=== PATIENT | female | born 1965 | race Caucasian/White ===

== ENCOUNTER → 2022-04-01 | Outpatient (CLI) | payer BC ==
--- NOTE | 2022-04-02 08:59 | US ---
EXAMINATION TYPE: US thyroid st tissue head/neck DATE OF EXAM: 04/01/2022 COMPARISON: NONE CLINICAL HISTORY: E04.2 NONTOXIC MULTINODULAR GOITER. Hx FNA. Goiter. GLAND SIZE: Right Lobe: 6.3 x 2.3 x 2.1 cm Overall Parenchyma: heterogenous Left Lobe: 8.0 x 4.0 x 2.8 cm Overall Parenchyma: heterogeneous Isthmus Thickness: 0.6 cm NODULES RIGHT: # of nodules measured on right: 2 1. 0.7 X 0.7 x 0.5 cm, lower medial, solid or almost completely solid, isoechoic nodule, which is w ider than tall, with smooth margins, without echogenic foci. TR 3 Prior size: No prior LEFT: # of nodules measured on left: 2 1. 4.1 X 3.5 x 3.1 cm, mid-inf lat-mid, mixed cystic and solid, isoechoic nodule, which is wider th an tall, with smooth margins, without echogenic foci. TR 2 Prior size: No prior 2. 2.1 X 1.6 x 1.2 cm, medial, mixed cystic and solid, isoechoic nodule, which is wider than tall, with smooth margins, without echogenic foci. Prior size: No prior ISTHMUS: # of nodules measured in the isthmus: 1 1. 1.0 X 0.9 x 0.6 cm mixed cystic and solid, isoechoic nodule, which is wider than tall, with ill- defined margins, without echogenic foci. Prior size: No prior Bilateral neck scanned, no evidence of lymphadenopathy. IMPRESSION: 1. Mildly suspicious nodule within the right lobe thyroid. Consider follow-up exam in one year. 2017 ACR TI-RADS LEVEL: *Highest TI-RADS level nodule reported
== END | disposition home or self-care (01) ==
LOC: RADUSWWP 16:04
PROVIDERS: ATTEND Internal Medicine Endocrinology, Diabetes & Metabolism
DX: E04.2 Nontoxic multinodular goiter (principal)
CPT/HCPCS: 76536

== ENCOUNTER → 2022-04-03 | Outpatient (CLI) | payer BC ==
[2022-04-03 16:19] LABS: T4, Free (Free Thyroxine) 1.29 ng/dL (0.800-1.800)
== END | disposition home or self-care (01) ==
LOC: LABWHC1 11:43
PROVIDERS: ATTEND Internal Medicine Endocrinology, Diabetes & Metabolism
DX: E04.2 Nontoxic multinodular goiter (principal)
CPT/HCPCS: 36415; 84439; 84443

== ENCOUNTER → 2022-08-16 | Outpatient (CLI) | payer BC ==
[2022-08-16 18:57] LABS: African American GFR (CKD) 109.9 (60.0-200.0); Albumin 4.7 g/dL (3.8-4.9); Albumin/Globulin Ratio 1.96 (1.60-3.17); Anion Gap 9.1 mmol/L (10.00-18.00); BUN/Creat Ratio 24.57 Ratio (12.00-20.00); Blood Urea Nitrogen 17.2 mg/dL (9.0-27.0); Carbon Dioxide 27.9 mmol/L (20.0-27.5); Globulin 2.4 g/dL (1.6-3.3); Non-African American GFR(CKD) 94.8 (60.0-200.0); Potassium 4.3 mmol/L (3.5-5.5); T4, Free (Free Thyroxine) 1.19 ng/dL (0.800-1.800); Total Bilirubin 0.4 mg/dL (0.30-1.20); Total Protein 7.1 g/dL (6.2-8.2)
== END | disposition home or self-care (01) ==
LOC: LABWHC1 11:28
PROVIDERS: ATTEND Internal Medicine Endocrinology, Diabetes & Metabolism
DX: E04.2 Nontoxic multinodular goiter (principal)
CPT/HCPCS: 36415; 80053; 84439; 84443

== ENCOUNTER → 2023-02-22 | Outpatient (CLI) | payer BC ==
[2023-02-22 20:47] LABS: ALT 24 U/L (8-44); AST 24 U/L (13-35); Albumin 4.8 d/dL (3.8-4.9); Albumin/Globulin Ratio 2.18 Ratio (1.60-3.17); Alkaline Phosphatase 61 U/L (41-126); Blood Urea Nitrogen 16.1 mg/dL (9.0-27.0); Calcium 10.3 mg/dL (8.7-10.3); Carbon Dioxide 25.9 mmol/L (21.6-31.8); Chloride 103 mmol/L (96-109); Globulin 2.2 d/dL (1.6-3.3); Glucose 146 mg/dL (70-110); Potassium 4.5 mmol/L (3.5-5.5); Sodium 141 mmol/L (135-145); T4, Free (Free Thyroxine) 1.25 ng/dL (0.80-1.80); Total Bilirubin 0.4 mg/dL (0.3-1.2)
--- NOTE | 2023-02-23 09:32 | US ---
EXAMINATION TYPE: US thyroid st tissue head/neck DATE OF EXAM: 02/22/2023 COMPARISON: 04/01/2022 CLINICAL INDICATION: Female, 57 years old with history of E04.2 NONTOXIC MULTINODULAR GOITER; prior left thyroidectomy for goiter GLAND SIZE: Right Lobe: 5.7 x 2.0 x 2.4 cm Overall Parenchyma: diffusely heterogeneous Left Lobe: surgically absent Isthmus Thickness: surgically absent NODULES RIGHT: # of nodules measured on right: 1 1. 0.7 X 0.4 x 0.6 cm oval solid hypoechoic TR 4 nodule at the anterior medial mid pole, which is w ider than tall. Prior size: 0.7 x 0.7 x 0.5 cm Bilateral neck scanned, no evidence of lymphadenopathy. IMPRESSION: Status post left thyroidectomy. Mildly enlarged right lobe with similar solitary 7 mm TR4 nodule.
== END | disposition home or self-care (01) ==
LOC: RADUSWWP 16:03
PROVIDERS: ATTEND Internal Medicine Endocrinology, Diabetes & Metabolism
DX: E04.2 Nontoxic multinodular goiter (principal); E89.0 Postprocedural hypothyroidism
CPT/HCPCS: 76536; 80053; 84439; 84443